=== PATIENT | female | born 1985 | race Caucasian/White ===

== ENCOUNTER 2016-07-01 01:20 | Observation (INO) | payer OTHER ==
[2016-07-01] MEDS ORDERED: Ondansetron 4 MG Tab.DIS PO ONE (01:32)
--- NOTE | 2016-07-01 01:32 | EDM.PDOC ---
ED HPI Trauma - General Chief Complaint: Lower Extremity Injury/Pain Stated Complaint: ANKLE INJURY Time Seen by Provider: 07/01/16 01:22 - History of Present Illness INITIAL COMMENTS - FREE TEXT/NARRATIVE: HISTORY AND PHYSICAL: History of present illness: The patient is a 30-year-old female who presents after coming home after being out having some cocktails and inner dartos mis-stepping and "rolling her ankle" and falling. She has complains of only pain at her right ankle and there is no proximal and knee or hip pain she did not hit her head pass out or black out and has no head neck or back pain. She is no chest pain or shortness of breath and a normal day earlier without any issues. Patient denies any sensory changes in the toes. Patient states she was slightly nauseated on the trip here Review of systems: As per history of present illness and below otherwise all systems reviewed and negative. Past medical history: As per history of present illness and as reviewed below otherwise noncontributory. Surgical history: As per history of present illness and as reviewed below otherwise noncontributory. Social history: No reported history of drug or alcohol abuse. Family history: As per history of present illness and as reviewed below otherwise noncontributory. Physical exam: General: Well-developed well-nourished slightly overweight female who is nontoxic and speaking clearly and easily in the ED. Vital signs of the note by me HEENT: Atraumatic, normocephalic, pupils reactive, negative for conjunctival pallor or scleral icterus, mucous membranes moist, throat clear, neck supple, nontender, trachea midline. There are no midline step-offs or defects of the cervical spine Lungs: Clear to auscultation, breath sounds equal bilaterally, chest nontender. Heart: S1S2, regular, negative for clicks, rubs, or JVD. Abdomen: Soft, nondistended, nontender. Negative for masses or hepatosplenomegaly. Negative for costovertebral tenderness. Pelvis: Stable nontender. No lateral hip tenderness Genitourinary: Deferred. Rectal: Deferred. Extremities: Atraumatic except for the lateral aspect of the right ankle with her some soft tissue swelling and no crepitus or bony deformities or malalignment is seen. Neurovascular is intact distally and there is no foot or toe pain and no proximal tib-fib knee or hip pain on the right side. The legs are, negative for cords or calf pain. Neurovascular unremarkable. Also note that there are no open skin areas at the ankle Neuro: Awake, alert, oriented. Motor and sensory unremarkable throughout. Exam nonfocal. Back: There are no midline step-offs or defects of the thoracic or lumbar spine and no posterior rib tenderness Diagnostics: X-ray right ankle and tib-fib Accu-Chek serum hCG Therapeutics: Zofran IV fluids morphine 0258: I. discussed the x-ray findings and the case with Dr. Fisher who is rehabilitation therapy aide for orthopedics and she wants the patient to be placed in a post mold and admitted to the floor and she will be operated on tomorrow. The patient and family at bedside were notified of this and are in agreement. Impression: Bimalleolar fracture (closed) with disruption of the Mortise Definitive disposition and diagnosis as appropriate pending reevaluation and review of above. Allergies/ADRs: Allergies No Known Allergies Allergy (Verified 07/01/16 01:25) Home Medications: Ambulatory Orders . [No Known Home Meds] 05/04/14 [Confirmed 07/01/16] Social & Family History - Tobacco Use Smoking Status *Q: Never Smoker Years of Tobacco use: 8 Second Hand Smoke Exposure: No - Alcohol Use Days Per Week of Alcohol Use: 1 Number of Drinks Per Day: 2 Total Drinks Per Week: 2 - Recreational Drug Use Recreational Drug Use: No Drug Use in Last 12 Months: No Review of Systems - Review of Systems Review Of Systems: ROS reveals no pertinent complaints other than HPI. Trauma Exam - Physical Exam Exam: See Below (See dictation) Course - Vital Signs Last Recorded V/S: Last Vital Signs Temp 36.6 C 07/01/16 01:27 Pulse 79 07/01/16 01:27 Resp 16 07/01/16 01:27 BP 97/55 L 07/01/16 01:27 Pulse Ox 97 07/01/16 01:27 - Orders/Labs/Meds Orders: Active Orders 24 hr Category Date Time Status Patient Status [ADT] Stat ADT 07/01/16 03:04 Ordered Blood Glucose Check, Bedside [RC] ONETIME Care 07/01/16 03:03 Ordered Communication Order [RC] STAT Care 07/01/16 03:05 Ordered Ankle Min 3V Rt [CR] Stat Exams 07/01/16 01:27 Taken Tibia Fibula Rt [CR] Stat Exams 07/01/16 01:27 Taken HCG QUALITATIVE,SERUM [CHEM] Stat Lab 07/01/16 03:03 Ordered Sodium Chloride 0.9% [Normal Saline] 1,000 ml Med 07/01/16 03:03 Ordered IV STAT Sodium Chloride 0.9% [Saline Flush] Med 07/01/16 03:03 Ordered 10 ml FLUSH ASDIRECTED PRN Sodium Chloride 0.9% [Saline Flush] Med 07/01/16 03:03 Ordered 2.5 ml FLUSH ASDIRECTED PRN Saline Lock Insert [OM.PC] Stat Oth 07/01/16 03:03 Ordered Medication Orders Sodium Chloride (Normal Saline) 1,000 mls @ 999 mls/hr IV STAT ONE Stop: 07/01/16 04:03 Sodium Chloride (Saline Flush) 10 ml FLUSH ASDIRECTED PRN PRN Reason: Keep Vein Open Sodium Chloride (Saline Flush) 2.5 ml FLUSH ASDIRECTED PRN PRN Reason: Keep Vein Open Meds: Medications Generic Name Dose Route Start Last Admin Trade Name Freq PRN Reason Stop Dose Admin Sodium Chloride 1,000 mls @ 999 mls/hr 07/01/16 03:03 Normal Saline IV 07/01/16 04:03 STAT ONE Sodium Chloride 10 ml 07/01/16 03:03 Saline Flush FLUSH ASDIRECTED PRN Keep Vein Open Sodium Chloride 2.5 ml 07/01/16 03:03 Saline Flush FLUSH ASDIRECTED PRN Keep Vein Open Discontinued Medications Generic Name Dose Route Start Last Admin Trade Name Freq PRN Reason Stop Dose Admin Morphine Sulfate 4 mg 07/01/16 03:03 Morphine IVPUSH 07/01/16 03:04 ONETIME ONE Ondansetron HCl 4 mg 07/01/16 01:32 07/01/16 01:37 Zofran Odt PO 07/01/16 01:33 4 mg ONETIME ONE Administration Ondansetron HCl 4 mg 07/01/16 03:03 Zofran IVPUSH 07/01/16 03:04 ONETIME ONE Departure - Departure Time of Disposition: 03:06 Disposition: Refer to Observation Condition: good Clinical Impression: Ankle fracture, bimalleolar, closed Qualifiers: Encounter type: initial encounter Laterality: right Qualified Code(s): S82.841A - Displaced bimalleolar fracture of right lower leg, initial encounter for closed fracture Referrals: PCP,None [Primary Care Provider] - Forms: ED Department Discharge - My Orders Last 24 Hours: My Active Orders 07/01/16 01:27 Ankle Min 3V Rt [CR] Stat Tibia Fibula Rt [CR] Stat 07/01/16 03:03 Blood Glucose Check, Bedside [RC] ONETIME HCG QUALITATIVE,SERUM [CHEM] Stat Sodium Chloride 0.9% [Normal Saline] 1,000 ml IV STAT Sodium Chloride 0.9% [Saline Flush] 10 ml FLUSH ASDIRECTED PRN Sodium Chloride 0.9% [Saline Flush] 2.5 ml FLUSH ASDIRECTED PRN Saline Lock Insert [OM.PC] Stat 07/01/16 03:04 Patient Status [ADT] Stat 07/01/16 03:05 Communication Order [RC] STAT - Assessment/Plan Last 24 Hours: My Active Orders 07/01/16 01:27 Ankle Min 3V Rt [CR] Stat Tibia Fibula Rt [CR] Stat 07/01/16 03:03 Blood Glucose Check, Bedside [RC] ONETIME HCG QUALITATIVE,SERUM [CHEM] Stat Sodium Chloride 0.9% [Normal Saline] 1,000 ml IV STAT Sodium Chloride 0.9% [Saline Flush] 10 ml FLUSH ASDIRECTED PRN Sodium Chloride 0.9% [Saline Flush] 2.5 ml FLUSH ASDIRECTED PRN Saline Lock Insert [OM.PC] Stat 07/01/16 03:04 Patient Status [ADT] Stat 07/01/16 03:05 Communication Order [RC] STAT
[2016-07-01] MEDS ORDERED: Sodium Chloride 0.9% 10 ML Syringe FLUSH PRN (03:03)
[2016-07-01] MEDS ORDERED: Ondansetron 4 MG/2 ML SDV IVPUSH ONE (03:03)
[2016-07-01] MEDS ORDERED: Morphine 2 MG/ML Syringe IVPUSH ONE (03:03)
[2016-07-01] MEDS ORDERED: Sodium Chloride 0.9% 2.5 ML Syringe FLUSH PRN (03:03)
[2016-07-01] MEDS ORDERED: Sodium Chloride 0.9% 1,000 ML IV ONE (03:03)
[2016-07-01] MEDS ORDERED: HYDROmorphone 2 MG/ML Syringe IVPUSH ONE (03:15)
[2016-07-01] MEDS ORDERED: diphenhydrAMINE 50 MG/ML SDV IVPUSH ONE (03:18)
[2016-07-01] MEDS ORDERED: Ondansetron 4 MG/2 ML SDV IVPUSH PRN (04:06)
[2016-07-01] MEDS ORDERED: HYDROmorphone 1 MG/ML Syringe IVPUSH PRN (04:06)
[2016-07-01] MEDS ORDERED: Lactated Ringers 1,000 ML IV SCH (04:15)
[2016-07-01] MEDS ORDERED: ceFAZolin 2 GM in Premix Bag 1 BAG IV ONE (07:45)
--- NOTE | 2016-07-01 07:59 | PCM.HP ---
<Alsisa Tovar - Last Filed: 07/01/16 08:06> H&P History of Present Illness - General Date of Service: 07/01/16 Admit Problem/Dx: Admission Diagnosis/Problem Admission Diagnosis/Problem Ankle fracture Source of Information: Patient History Limitations: Reports: No limitations - History of Present Illness Initial Comments - Free Text/Narative: Patient went out drinking last night and returned home after the bars closed. She states she tripped on something at home and does not recall the event. Unable to tell the mechanism of her fall. She states she remember having right ankle pain. No other complaints of pain. She was seen in the ED where images and labs were obtained. Xray reveals a distal fibula fracture. H/o asthma as a child. Smokes 1/2 PPD. right ankle Pain Score (Numeric/FACES): 9 - Related Data Allergies/Adverse Reactions: Allergies Allergy/AdvReac Type Severity Reaction Status Date / Time morphine Allergy Itching Verified 07/01/16 03:36 Home Medications: Home Meds . [No Known Home Meds] 05/04/14 [History] Past Medical History - Past Health History Medical/Surgical History: Denies Medical/Surgical History Gastrointestinal History: Reports: None - Infectious Disease History Infectious Disease History: Reports: Chicken pox - Past Surgical History HEENT Surgical History: Reports: Tonsillectomy GI Surgical History: Reports: Colonoscopy Social & Family History - Family History Family Medical History: Noncontributory - Tobacco Use Smoking Status *Q: Never Smoker Years of Tobacco use: 8 Packs/Tins Daily: 1 Used Tobacco, but Quit: No Second Hand Smoke Exposure: No - Alcohol Use Days Per Week of Alcohol Use: 1 Number of Drinks Per Day: 2 Total Drinks Per Week: 2 Date of Last Drink: 06/30/16 Time of Last Drink: 23:00 - Recreational Drug Use Recreational Drug Use: No Drug Use in Last 12 Months: No H&P Review of Systems - Review of Systems: Review Of Systems: See Below General: Reports: no symptoms HEENT: Reports: no symptoms Pulmonary: Reports: No Symptoms Cardiovascular: Reports: no symptoms Gastrointestinal: Reports: No symptoms Genitourinary: Reports: no symptoms Musculoskeletal: Reports: no symptoms Skin: Reports: no symptoms Psychiatric: Reports: no symptoms Neurological: Reports: No Symptoms Hematologic/Lymphatic: Reports: no symptoms Immunologic: Reports: no symptoms Exam - Exam Exam: See Below - Vital Signs Vital Signs: Last Vital Signs Temp 36.9 C 07/01/16 04:23 Pulse 98 07/01/16 04:23 Resp 20 07/01/16 04:23 BP 121/67 07/01/16 04:23 Pulse Ox 100 07/01/16 04:23 Weight: 102.5 kg - Exam General: alert, oriented HEENT: Conjunctiva clear, EACs clear, EOMI, Hearing intact, Mucosa moist & pink Neck: supple, trachea midline Lungs: Clear to auscultation, Normal respiratory effort Cardiovascular: regular rate, regular rhythm Abdomen: normal bowel sounds, soft Skin: warm, dry, intact Neurological: cranial nerves intact Neuro Extensive - Mental Status: alert, oriented x3, normal mood/affect, normal cognition, memory intact (RLE: leg is in splint, able to move all her toes, sensation is intact. no discolorization. 2+ pulses. LLE: WNL) - Patient Data Lab Results last 24 hrs: Laboratory Results - last 24 hr 07/01/16 07/01/16 Range/Units 03:10 03:10 POC Glucose 114 H (60-110) mg/dL HCG, Qual NEGATIVE (NEG) *Q Meaningful Use (ADM) - VTE *Q VTE Criteria *Q: VTE Pharmacological Contraindications *Q: Not Candidate LT Anticoag - VTE Risk Assess *Q Each Risk Factor Represents 1 Point: Minor Surgery Planned Total Score 1 Point Risk Factors: 1 Each Risk Factor Represents 2 Points: None Total Score 2 Point Risk Factors: 0 Each Risk Factor Represents 3 Points: None Total Score 3 Point Risk Factors: 0 Each Risk Factor Represents 5 Points: None Total Score 5 Point Risk Factors: 0 Venous Thromboembolism Risk Factor Score *Q: 1 - Stroke *Q Stroke Criteria *Q: - AMI *Q AMI Criteria *Q: - Problem List (1) Ankle fracture, bimalleolar, closed SNOMED Code(s): 06768173 ICD Code: S82.843A - DISPLACED BIMALLEOLAR FRACTURE OF UNSP LOWER LEG, INIT Status: Acute Current Visit: Yes Qualifiers: Encounter type: initial encounter Laterality: right Qualified Code(s): S82.841A - Displaced bimalleolar fracture of right lower leg, initial encounter for closed fracture Problem List Initiated/Reviewed/Updated: Yes Orders Last 24hrs: Active Orders 24 hr Category Date Time Status Patient Status [ADT] Routine ADT 07/01/16 04:04 Active Elevate Extremity [RC] ASDIRECTED Care 07/01/16 04:06 Active Nothing Per Oral Diet [DIET] Diet 07/01/16 Breakfast Active HYDROmorphone [Dilaudid] Med 07/01/16 04:06 Active 0.5 - 1 mg IVPUSH Q3H PRN Lactated Ringers [Ringers, Lactated] 1,000 ml Med 07/01/16 04:15 Active IV ASDIRECTED Ondansetron [Zofran] Med 07/01/16 04:06 Active 4 mg IVPUSH Q8H PRN ceFAZolin [Ancef] 2 gm Med 07/01/16 07:45 Ordered Premix Bag 1 bag IV ONETIME Medication Orders Hydromorphone HCl (Dilaudid) 0.5 - 1 mg IVPUSH Q3H PRN PRN Reason: Pain Last Admin: 07/01/16 07:47 Dose: 1 mg Lactated Ringer's (Ringers, Lactated) 1,000 mls @ 125 mls/hr IV ASDIRECTED JENNY Last Admin: 07/01/16 04:40 Dose: 125 mls/hr Cefazolin Sodium/Dextrose 2 gm (/ Premix) 50 mls @ 100 mls/hr IV ONETIME JENNY Ondansetron HCl (Zofran) 4 mg IVPUSH Q8H PRN PRN Reason: Nausea/Vomiting Sodium Chloride (Saline Flush) 10 ml FLUSH ASDIRECTED PRN PRN Reason: Keep Vein Open Sodium Chloride (Saline Flush) 2.5 ml FLUSH ASDIRECTED PRN PRN Reason: Keep Vein Open Assessment/Plan Comment:: 30 yro female s/p fall with right bimalleolar fracture with syndesmotic injury. Patient will need surgical intervention this morning. - continue NPO - IVF - PRN pain medication IV - verify consent - ancef 2 g loss prevention auditor for OR - type and screen. Patient was seen and discussed with DR Phillip Tovar MD PGY 2 07/01/16 8:11 AM <Parul Fisher - Last Filed: 07/01/16 10:40> H&P History of Present Illness - General Admit Problem/Dx: Admission Diagnosis/Problem Admission Diagnosis/Problem Ankle fracture Exam - Vital Signs Vital Signs: Last Vital Signs Temp 97.6 F 07/01/16 08:00 Pulse 81 07/01/16 08:00 Resp 20 07/01/16 08:14 BP 105/63 07/01/16 08:00 Pulse Ox 100 07/01/16 08:14 - Patient Data Lab Results last 24 hrs: Laboratory Results - last 24 hr 07/01/16 07/01/16 Range/Units 03:10 03:10 POC Glucose 114 H (60-110) mg/dL HCG, Qual NEGATIVE (NEG) *Q Meaningful Use (ADM) - VTE *Q VTE Criteria *Q: - Stroke *Q Stroke Criteria *Q: - AMI *Q AMI Criteria *Q: Orders Last 24hrs: Active Orders 24 hr Category Date Time Status Patient Status [ADT] Routine ADT 07/01/16 04:04 Active Elevate Extremity [RC] ASDIRECTED Care 07/01/16 04:06 Active Nothing Per Oral Diet [DIET] Diet 07/01/16 Breakfast Active HYDROmorphone [Dilaudid] Med 07/01/16 04:06 Active 0.5 - 1 mg IVPUSH Q3H PRN Lactated Ringers [Ringers, Lactated] 1,000 ml Med 07/01/16 04:15 Active IV ASDIRECTED Ondansetron [Zofran] Med 07/01/16 04:06 Active 4 mg IVPUSH Q8H PRN Medication Orders Hydromorphone HCl (Dilaudid) 0.5 - 1 mg IVPUSH Q3H PRN PRN Reason: Pain Last Admin: 07/01/16 07:47 Dose: 1 mg Lactated Ringer's (Ringers, Lactated) 1,000 mls @ 125 mls/hr IV ASDIRECTED JENNY Last Admin: 07/01/16 04:40 Dose: 125 mls/hr Ondansetron HCl (Zofran) 4 mg IVPUSH Q8H PRN PRN Reason: Nausea/Vomiting Sodium Chloride (Saline Flush) 10 ml FLUSH ASDIRECTED PRN PRN Reason: Keep Vein Open Sodium Chloride (Saline Flush) 2.5 ml FLUSH ASDIRECTED PRN PRN Reason: Keep Vein Open Assessment/Plan Comment:: Agree with above. No T&S needed. rrk
--- NOTE | 2016-07-01 08:08 | PCM.SN ---
- Free Text/Narrative Note: Patient seen and examined. Agree with MD La admission H&P. For complete details, please refer to the H&P. Patient states she fell last evening. C/o right ankle pain. Denies other injury. H/o possible ankle sprain in the past, but no residual problems. Denies distal paralysis, paresthesias. EXam of ankle shows splint to be in place. Moves toes without pain. Cap refill/ sensation intact. XR reviewed. Shows Villegas C fracture of the distal fibula with posterior malleolus fracture involving <10% of the joint surface. Widening of the ankle mortise c/w syndesmotic injury. Ass: R bimalleolar ankle fracture with syndesmotic injury Plan: 1. Recommend surgical treatment: ORIF R ankle with repair of syndesmosis 2. Procedure and postoperative course discussed with patient. 3. Risks of procedure include, but are not limited to, infection, N/v injury, stiffness, hardware irritation, nonunion, malunion, need for further surgery, and anesthetic complications. Patient agrees to proceed. Will plan to do today. 4. Importance of smoking cessation emphasized.
--- NOTE | 2016-07-01 08:14 | PCM.PREANE ---
Preanesthetic Assessment - Anesthesia/Transfusion/Family Hx Anesthesia History: Prior Anesthesia Without Reaction Other Type of Anesthesia Reaction Comment: Reports with last one (endoscopy) "pretty groggy after" Others no problems Family History of Anesthesia Reaction: No Transfusion History: No Prior Transfusion(s) - Review of Systems General: No Symptoms Pulmonary: No Symptoms Cardiovascular: No Symptoms Gastrointestinal: No symptoms Neurological: No Symptoms Other: Reports: None - Physical Assessment NPO Status Date: 06/30/16 (solids 1800, liquids MN) NPO Status Time: 23:55 O2 Sat by Pulse Oximetry: 100 Respiratory Rate: 20 Vital Signs: Last Vital Signs Temp 36.9 C 07/01/16 04:23 Pulse 98 07/01/16 04:23 Resp 20 07/01/16 04:23 BP 121/67 07/01/16 04:23 Pulse Ox 100 07/01/16 04:23 Height: 1.65 m Weight: 102.5 kg ASA Class: 2 Mental Status: Alert & Oriented x3 Airway Class: Mallampati = 2 Dentition: Reports: Normal Dentition Lungs: Clear to auscultation, Normal respiratory effort Cardiovascular: Regular Rate, Regular Rhythm - Lab Values: Laboratory Last Values POC Glucose 114 mg/dL (60-110) H 07/01/16 03:10 HCG, Qual NEGATIVE (NEG) 07/01/16 03:10 - Allergies Allergies/Adverse Reactions: Allergies Allergy/AdvReac Type Severity Reaction Status Date / Time morphine Allergy Itching Verified 07/01/16 03:36 - Blood Blood Available: No - Anesthesia Plan Pre-Op Medication Ordered: None - Acknowledgements Anesthesia Type Planned: General Anesthesia Pt an Appropriate Candidate for the Planned Anesthesia: Yes Alternatives and Risks of Anesthesia Discussed w Pt/Guardian: Yes Pt/Guardian Understands and Agrees with Anesthesia Plan: Yes Additional Comments: smoker. multiple surgeries without anesthetic complications, preg test negative PreAnesthesia Questionnaire - Past Health History Medical/Surgical History: Denies Medical/Surgical History Gastrointestinal History: Reports: None - Infectious Disease History Infectious Disease History: Reports: Chicken pox - Past Surgical History HEENT Surgical History: Reports: Tonsillectomy, Other (see below) (dental extractions) GI Surgical History: Reports: Colonoscopy Female Surgical History: Reports: LEEP Musculoskeletal Surgical History: Reports: Other (see below) (bunion) - SUBSTANCE USE Smoking Status *Q: Current Every Day Smoker Tobacco Use Within Last Twelve Months: Cigarettes Second Hand Smoke Exposure: No Days Per Week of Alcohol Use: 1 Number of Drinks Per Day: 2 Total Drinks Per Week: 2 Date of Last Drink: 06/30/16 Time of Last Drink: 23:00 Recreational Drug Use History: No - HOME MEDS Home Medications: Home Meds . [No Known Home Meds] 05/04/14 [History] - CURRENT (IN HOUSE) MEDS Current Meds: Current Medications Hydromorphone HCl (Dilaudid) 0.5 - 1 mg IVPUSH Q3H PRN PRN Reason: Pain Last Admin: 07/01/16 07:47 Dose: 1 mg Lactated Ringer's (Ringers, Lactated) 1,000 mls @ 125 mls/hr IV ASDIRECTED JENNY Last Admin: 07/01/16 04:40 Dose: 125 mls/hr Cefazolin Sodium/Dextrose 2 gm (/ Premix) 50 mls @ 100 mls/hr IV ONETIME ONE Stop: 07/01/16 08:14 Ondansetron HCl (Zofran) 4 mg IVPUSH Q8H PRN PRN Reason: Nausea/Vomiting Sodium Chloride (Saline Flush) 10 ml FLUSH ASDIRECTED PRN PRN Reason: Keep Vein Open Sodium Chloride (Saline Flush) 2.5 ml FLUSH ASDIRECTED PRN PRN Reason: Keep Vein Open Discontinued Medications Diphenhydramine HCl (Benadryl) 25 mg IVPUSH ONETIME ONE Stop: 07/01/16 03:19 Last Admin: 07/01/16 03:27 Dose: 25 mg Hydromorphone HCl (Dilaudid) 1 mg IVPUSH ONETIME ONE Stop: 07/01/16 03:16 Last Admin: 07/01/16 03:31 Dose: 1 mg Sodium Chloride (Normal Saline) 1,000 mls @ 999 mls/hr IV STAT ONE Stop: 07/01/16 04:03 Last Admin: 07/01/16 03:26 Dose: 999 mls/hr Morphine Sulfate (Morphine) 4 mg IVPUSH ONETIME ONE Stop: 07/01/16 03:04 Last Admin: 07/01/16 04:41 Dose: Not Given Ondansetron HCl (Zofran Odt) 4 mg PO ONETIME ONE Stop: 07/01/16 01:33 Last Admin: 07/01/16 01:37 Dose: 4 mg Ondansetron HCl (Zofran) 4 mg IVPUSH ONETIME ONE Stop: 07/01/16 03:04 Last Admin: 07/01/16 03:29 Dose: 4 mg Preanesthetic Assessment - ANESTHESIA/TRANSFUSION/FAMILY HX Anesthesia/Transfusion History: Prior Anesthesia Other Type of Anesthesia Reaction Comment: Reports with last one (endoscopy) "pretty groggy after" Others no problems Family History of Anesthesia Reaction: No Intubation History: Unknown - PHYSICAL ASSESSMENT O2 Sat by Pulse Oximetry: 100 RR: 20 Vital Signs: Last Vital Signs Temp 36.9 C 07/01/16 04:23 Pulse 98 07/01/16 04:23 Resp 20 07/01/16 04:23 BP 121/67 07/01/16 04:23 Pulse Ox 100 07/01/16 04:23 Height: 1.65 m Weight: 102.5 kg - LAB Values: Laboratory Last Values POC Glucose 114 mg/dL (60-110) H 07/01/16 03:10 HCG, Qual NEGATIVE (NEG) 07/01/16 03:10 - ALLERGIES Allergies/Adverse Reactions: Allergies Allergy/AdvReac Type Severity Reaction Status Date / Time morphine Allergy Itching Verified 07/01/16 03:36
[2016-07-01] MEDS ORDERED: Ondansetron 4 MG/2 ML SDV ONE (09:35)
[2016-07-01] MEDS ORDERED: Lidocaine 2% 5 ML SDV ONE (09:35)
[2016-07-01] MEDS ORDERED: Propofol 200 MG/20 ML SDV ONE (09:36)
[2016-07-01] MEDS ORDERED: fentaNYL 250 MCG/5 ML SDV ONE (09:36)
[2016-07-01] MEDS ORDERED: Midazolam 1 MG/ML 2 ML SDV ONE (09:36)
[2016-07-01] MEDS ORDERED: Bupivacaine 0.5% 30 ML SDV ONE (10:47)
[2016-07-01] MEDS ORDERED: HYDROmorphone 2 MG/ML Syringe ONE (11:10)
[2016-07-01] MEDS ORDERED: Dexamethasone 4 MG/ML 5 ML MDV ONE (11:11)
[2016-07-01] MEDS ORDERED: Ketorolac 30 MG/ML SDV ONE (11:41)
[2016-07-01] MEDS ORDERED: diphenhydrAMINE 25 MG Cap PO PRN (12:37)
--- NOTE | 2016-07-01 12:39 | PCM.OPNOTE ---
<Alissa Tovar - Last Filed: 07/01/16 12:35> - General Post-Op/Procedure Note Date of Surgery/Procedure: 07/01/16 Post-Op Diagnosis: right bimalleolar fracture with syndesmotic injury Anesthesia Technique: General LMA Primary Surgeon: Parul Fisher Machine Operator Hay Stacker: Alissa Tovar Machine Operator Hay Stacker: Max Willard EBL in mLs: 10 Drain/Tube Comments:: Tourniquet 61 minutes Condition: Fair <Parul Fisher - Last Filed: 07/01/16 12:44> - General Post-Op/Procedure Note Free Text/Narrative:: #[id number]
[2016-07-01] MEDS ORDERED: fentaNYL 100 MCG/2 ML SDV ONE (12:56)
[2016-07-01] MEDS: fentaNYL 100 MCG/2 ML SDV IVPUSH PRN ×2 (13:08→13:15)
--- NOTE | 2016-07-01 13:23 | PCM.POSTAN ---
POST ANESTHESIA ASSESSMENT - MENTAL STATUS Mental Status: alert, oriented - RESPIRATORY Respiratory Status: respiratory rate WNL, airway patent, O2 saturation stable - CARDIOVASCULAR CV Status: pulse rate WNL, blood pressure stable - GASTROINTESTINAL GI Status: no symptoms - PAIN Pain Score: 4 - POST OP HYDRATION Hydration Status: adequate & stable
[2016-07-01] MEDS: Acetaminophen/HYDROcodone 325-10 MG Tab PO PRN ×2 (15:03→15:49)
--- NOTE | 2016-07-01 15:03 | OR ---
SURGEON: Parul Fisher MD DATE OF PROCEDURE: 07/01/2016 PREOPERATIVE DIAGNOSES: 1. Right bimalleolar ankle fracture (lateral and posterior). 2. Right ankle syndesmotic injury. POSTOPERATIVE DIAGNOSES: 1. Right bimalleolar ankle fracture (lateral and posterior). 2. Right ankle syndesmotic injury. PROCEDURE: 1. Open reduction internal fixation, right distal fibula. 2. Open reduction internal fixation, right ankle syndesmosis. LINK CUTTER: 1. Max Willard PA-C. 2. Alissa Tovar MD, PGY-2. ANESTHESIA: General. ESTIMATED BLOOD LOSS: 10 mL. TOURNIQUET TIME: 61 minute. COMPLICATIONS: None. DVT PROPHYLAXIS: PAS boot to the nonoperative leg. IMPLANTS USED: Cadillac 5 hole 1/3 semitubular plate with 3.5 mm nonlocking cortical screws and 2 Arthrex tightrope fixation systems. BRIEF HISTORY: Enriqueta is a 30-year-old female who injured her right ankle last evening. She states she tripped and fell. She was seen in the emergency room and found to have a Villegas C fracture of her right distal fibula along with a minimally displaced posterior malleolus fracture. There was no tib-fib overlap on the AP view, consistent with a syndesmotic injury. At that time, I recommended surgical treatment. The risks and goals of the procedure were discussed with the patient and were documented preoperatively. She agreed to proceed. DESCRIPTION OF PROCEDURE: The patient was properly identified and brought to the operating room. She was transferred from the OR cart and placed on the operating table in supine position. General anesthesia was administered. After adequate anesthesia was obtained, a well-padded tourniquet was applied to the right lower extremity. The right lower extremity was then prepped in standard fashion using ChloraPrep solution. It was then sterilely draped. A time-out was performed to ensure correct site and procedure. Preoperative antibiotics were given. The surgical site had been marked preoperatively. An incision was made over the lateral aspect of the right low leg, centered over the fracture site. Subcutaneous tissues were dissected. Care was taken to look for the superficial peroneal nerve. This was not encountered. The fracture was then visualized. This was quite transverse in nature. The periosteum was elevated from around the fracture site. The wound was copiously irrigated to remove the fracture hematoma. Two lobster claws were then placed on the proximal and distal fragments, and the fracture was reduced. A 5-hole plate was then placed. I left the center hole open and placed two 3.5 mm screws proximal and distal to the fracture site. C-arm imaging was used to check the position of the fracture. This confirmed that the fibular length had been restored. Two additional 3.5 mm screws were placed in the plate. At the time of C-arm imaging, it was noticed that there was some displacement of the distal fragment. It was then noted that there was a coronal split in a portion of the distal fragment. I then held the fibula in a reduced position and placed an additional screw through the fracture site. This provided better fixation. The fibular length was again checked, and there had been no change in this position. I then imaged the ankle under live fluoroscopy. An external rotation stress view did show widening of the syndesmosis as well as a lateral pull past with the bone hook. I elected to fix the syndesmosis. A small incision was made over the distal fibula. The subcutaneous tissues were cleared down to the level of the bone. A large periarticular clamp was then placed on the lateral and medial malleolus. This was clamped into position to hold the mortise intact. The foot was brought into a slightly plantar flexed position. A 3.5 mm drill was then used to drill through the fibula and tibia. The tightrope fixation system was then passed. This was then secured. The medial buttons flipped without difficulty. The clamp was then removed. This showed good reduction of the ankle mortise. With the significant ligament injury, I felt that 2 tight ropes would give better fixation. An additional tight rope construct was placed in a similar manner, just proximal to the previously inserted one. This was again passed without difficulty and was tightened into place. Final C-arm images confirmed good reduction of the fracture as well as gnosticism of the fibular length. The mortise appeared to be well approximated. Again, an external rotation stress view as well as the lateral pull with the bone hook was performed using live fluoroscopy. This showed no motion at the syndesmosis. The wound was then copiously irrigated with saline solution. The subcutaneous tissues were closed with 2-0 Monocryl. The skin was closed with xena. Xeroform gauze was placed over the wound, and a bulky dressing was applied. The tourniquet was then deflated. A well-padded posterior splint with medial and lateral stabilizing slabs was then placed. She was awakened from her anesthetic and transferred back to the operating room cart. She was brought to recovery room in stable condition. All needle and sponge counts were correct. VERONICA / ELFEGO /[id number]
[2016-07-01 16:34] VITALS: BP 140/72
--- NOTE | 2016-07-03 12:18 | CR ---
EXAMINATION: Right ankle HISTORY: ORIF COMPARISON: 07/01/2016 TECHNIQUE: 8 fluoroscopic images provided FINDINGS/IMPRESSION: Operative control films demonstrate screw and plate fixation of a distal fibula r diaphysis fracture. 2 syndesmotic anchors are noted. Posterior malleolus fracture also noted.
--- NOTE | 2016-07-03 16:13 | CR ---
EXAM DATE: 07/01/16 PATIENT'S AGE: 30 Patient: MONICA MARSH Facility: [place], [place] Site . Site : 1985 Study: XRay Extremity Right Ankle [id number] 2:18:28 AM Ordering Physician: Eliz Barney Final Report: Indication: Fall Technique: Three views of the right ankle Comparison: None available Findings: Bones/Joints: A fracture of the posterior malleolus and a fracture of the distal fibular diaphysis 6.6 centimeters proximal to the ankle joint. Widening of the medial mortise. Soft tissues: Mild soft tissue swelling. Impression: Distal fibular diaphyseal fracture and a fracture of the posterior malleolus with widening of the medial mortise, consistent with a PLR 4 injury Dictated by Flip Lepe MD @ 07/01/2016 2:48:57 AM Dictated by: Flip Lepe MD @ 07/01/2016 02:49:04 (Electronic Signature) Report Signed by Proxy and Original Signed Document filed in the Medical Record. [facility]
--- NOTE | 2016-07-03 16:14 | CR ---
EXAM DATE: 07/01/16 PATIENT'S AGE: 30 Patient: MONICA MARSH Facility: [place], [place] Site . Site : 1985 Study: XRay Extremity Right TibFib [id number]/18/2017 2:18:51 AM Ordering Physician: Eliz Barney Final Report: Indication: Fall Technique: Two views of the right tibia and fibula Comparison: 01/04/2016 Findings: Bones: The distal tibia and fibula are not visualized, however evaluated on the ankle series. A distal fibular diaphyseal fracture. No dislocation. Joint spaces: Unremarkable. Soft tissues: Unremarkable. Impression: A distal fibular diaphyseal fracture. Dictated by Flip Lepe MD @ 07/01/2016 2:50:25 AM Dictated by: Flip Lepe MD @ 07/01/2016 02:50:31 (Electronic Signature) Report Signed by Proxy and Original Signed Document filed in the Medical Record. YESSI
== END 2016-07-01 19:06 | disposition home or self-care (01) ==
LOC: MW.ED 01:20 → MW.MS 03:04
PROVIDERS: ADMIT Orthopaedic Surgery; ATTEND Orthopaedic Surgery
PROC: 0SSF04Z Reposition Right Ankle Joint with Internal Fixation Device, Open Approach (ICD-10-PCS; principal; 2016-07-01)
PROC: 0QSJ04Z Reposition Right Fibula with Internal Fixation Device, Open Approach (ICD-10-PCS; 2016-07-01)
DX: S82.841A Displaced bimalleolar fracture of right lower leg, initial encounter for closed fracture (principal); S93.04XA Dislocation of right ankle joint, initial encounter; W01.0XXA Fall on same level from slipping, tripping and stumbling without subsequent striking against object, initial encounter; Y92.009 Unspecified place in unspecified non-institutional (private) residence as the place of occurrence of the external cause; F17.210 Nicotine dependence, cigarettes, uncomplicated; Z88.5 Allergy status to narcotic agent
CPT/HCPCS: 27792; 27829; 73590; 73610; 76000; 82962; 84703; 96361; 96374; 96375; 99285; A9270; C1713; G0378; J1100; J1170; J1200; J1885; J2250; J2405; J3010; J7040; J7120; 01480; J2704

== ENCOUNTER → 2016-08-09 | Outpatient (CLI) | payer OTHER ==
--- NOTE | 2016-08-10 14:32 | CR ---
EXAM DATE: 08/09/16 PATIENT'S AGE: 30 Patient: MONICA MARSH Facility: [place], [place] Site . Site : 1985 Study: XRay Extremity Right Ankle [id number]/26/2017 10:37:49 AM Ordering Physician: Phillip Teran Final Report: HISTORY: Pain. Findings: Three views of the right ankle are compared to 12 July 2016. Cast has been removed. Skin xena are no longer present. Compression plate and multiple screws fix the distal fibular fracture in stable alignment. There is intact. A syndesmotic tension device is in place. The mortise is intact. There is subtle cortical step-off of the posterior malleolus consists with a nondisplaced fracture. Impression: 1. Status post ORIF of distal right fibula with syndesmotic tension device in place and intact mortise. 2. Nondisplaced posterior malleolar fracture without change. Dictated by Beverly Humphrey MD @ Aug 10 2016 12:56AM (Electronic Signature) Report Signed by Proxy. [facility]
== END ==
LOC: MW.CHORTHO 07:49
PROVIDERS: ATTEND Orthopaedic Surgery
DX: Z96.7 Presence of other bone and tendon implants (principal); Z98.890 Other specified postprocedural states; Z87.81 Personal history of (healed) traumatic fracture; S82.891D Other fracture of right lower leg, subsequent encounter for closed fracture with routine healing
CPT/HCPCS: 73610-26-RT; 73610-RT

== ENCOUNTER 2017-02-14 18:09 | Emergency (ER) | payer OTHER ==
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
[2017-02-14] MEDS ORDERED: Ketorolac 60 MG/2 ML SDV IM ONE (19:51)
[2017-02-14 20:29] VITALS: BP 116/69
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
== END 2017-02-14 20:27 | disposition home or self-care (01) ==
LOC: MW.ED 18:09
DX: M54.2 Cervicalgia (principal); F17.210 Nicotine dependence, cigarettes, uncomplicated; Z88.5 Allergy status to narcotic agent; V89.2XXA Person injured in unspecified motor-vehicle accident, traffic, initial encounter; Y92.410 Unspecified street and highway as the place of occurrence of the external cause
CPT/HCPCS: 70450; 72125; 81025; 96372; 99284; J1885; J2360; 99283

== ENCOUNTER 2018-10-21 19:03 | Emergency (ER) | payer OTHER ==
[2018-10-21] MEDS ORDERED: Albuterol/Ipratropium 3.0-0.5 MG/3 ML Neb Soln ONE (19:13)
[2018-10-21] MEDS ORDERED: methylPREDNISolone Sodium Succinate 125 MG/2 ML SDV ONE (19:13)
[2018-10-21] MEDS ORDERED: Albuterol/Ipratropium 3.0-0.5 MG/3 ML Neb Soln NEB ONE (19:14)
[2018-10-21] MEDS ORDERED: Sodium Chloride 0.9% 1,000 ML IV ONE (19:14)
[2018-10-21] MEDS ORDERED: Sodium Chloride 0.9% 2.5 ML Syringe FLUSH PRN (19:14)
[2018-10-21] MEDS ORDERED: Sodium Chloride 0.9% 10 ML Syringe FLUSH PRN (19:14)
[2018-10-21] MEDS ORDERED: methylPREDNISolone Sodium Succinate 125 MG/2 ML SDV IVPUSH ONE (19:14)
--- NOTE | 2018-10-21 19:19 | EDM.PDOC ---
ED HPI GENERAL MEDICAL PROBLEM - General Chief Complaint: Respiratory Problem Stated Complaint: PT HAS DIFFICULTY BREATHING Time Seen by Provider: 10/21/18 19:06 - History of Present Illness INITIAL COMMENTS - FREE TEXT/NARRATIVE: HISTORY AND PHYSICAL: History of present illness: The patient is a 32-year-old female who has no significant pulmonary or cardiac history but says that she has intermittently been told that she may have asthma or bronchospasm and smokes 4-5 cigarettes a day and presents with complaints of shortness of breath cough and cold symptoms that have been ongoing for the last 1 week. The patient says she has an albuterol inhaler that she was given but she is never had a formal diagnosis of asthma nor has she been tested for it. She says that for the last 1 week she has had cold symptoms including a cough occasionally productive of phlegm intermittent fevers and chills but no documented temperature but no runny nose. She says she is also had a sore throat from coughing. She has no abdominal pain vomiting and had some diarrhea last week but nothing recently. She just recently had her period and denies . She is eating and drinking normally. She has no chest pain per se but says that she like she can't take a deep breath and moving air as well as normal. She used her inhaler this morning as well as a few hours ago and she is not sure if it helped.She has no leg pain or swelling and no other systemic complaints. Review of systems: As per history of present illness and below otherwise all systems reviewed and negative. Past medical history: As per history of present illness and as reviewed below otherwise noncontributory. Surgical history: As per history of present illness and as reviewed below otherwise noncontributory. Social history: No reported history of drug or alcohol abuse. Family history: As per history of present illness and as reviewed below otherwise noncontributory. Physical exam: General: Well-developed well-nourished mildly overweight female who is nontoxic and is speaking in full sentences without breathlessness or hoarse voice. Vital signs are noted by me HEENT: Atraumatic, normocephalic, pupils reactive, negative for conjunctival pallor or scleral icterus, mucous membranes moist, throat clear, throat is slightly erythematous but uvula is midline and there is no swelling, there is no cervical adenopathy or nuchal rigidity neck supple, nontender, trachea midline. Lungs: Clear to auscultation with some tight air exchange in the upper [place] and some coarse rhonchi and scattered airway noise but no stridor or wheezing and no work of breathing, breath sounds equal bilaterally, chest nontender. Heart: S1S2, regular rhythm and slightly tachycardic rate on my evaluation no overt murmurs Abdomen: Soft, nondistended, nontender. Negative for masses or hepatosplenomegaly. NABS Pelvis: Stable nontender. Genitourinary: Deferred. Rectal: Deferred. Extremities: Atraumatic, negative for cords or calf pain. Neurovascular unremarkable. No pedal edema or leg asymmetry Neuro: Awake, alert, oriented. Cranial nerves II through XII unremarkable. Cerebellum unremarkable. Motor and sensory unremarkable throughout. Exam nonfocal. Diagnostics: EKG chest x-ray CBC CMP lactic acid UA UCG troponin Therapeutics: IV O2 monitor IV fluids duo neb Solu-Medrol Ativan Testing results were discussed with the patient and she still having a hacking cough. She had an episode where she was hyperventilating and feeling very anxious so she was given a small dose of Ativan and she appears to be better. She is aware that she needs to get a formal diagnosis of her reactive airway disease and she has an inhaler at home but we will give her a spacer for better delivery and we will also give her a burst of steroids and some cough medicine for home. I strictly stressed that she needs to follow-up in the clinic for definitive care and treatment and she states understanding. Impression: Bronchospasm/spastic cough/acute bronchitis Definitive disposition and diagnosis as appropriate pending reevaluation and review of above. - Related Data Allergies Allergy/AdvReac Type Severity Reaction Status Date / Time morphine Allergy Itching Verified 10/21/18 19:21 Home Meds: Home Meds . [No Known Home Meds] 10/21/18 [History] Past Medical History - Past Health History Medical/Surgical History: Denies Medical/Surgical History Gastrointestinal History: Reports: None - Infectious Disease History Infectious Disease History: Reports: Chicken Pox - Past Surgical History HEENT Surgical History: Reports: Tonsillectomy, Other (See Below) GI Surgical History: Reports: Colonoscopy Female Surgical History: Reports: LEEP Musculoskeletal Surgical History: Reports: Other (See Below) Social & Family History - Family History Family Medical History: Noncontributory - Caffeine Use Caffeine Use: Reports: Coffee, Soda ED ROS GENERAL - Review of Systems Review Of Systems: ROS reveals no pertinent complaints other than HPI. ED EXAM, GENERAL - Physical Exam Exam: See Below (See dictation) Course - Vital Signs Last Recorded V/S: Last Vital Signs Temp 36.5 C 10/21/18 19:03 Pulse 93 10/21/18 20:22 Resp 17 10/21/18 20:22 BP 129/81 10/21/18 20:22 Pulse Ox 96 10/21/18 20:22 - Orders/Labs/Meds Orders: Active Orders 24 hr Category Date Time Status Cardiac Monitoring [RC] . DIRECTED Care 10/21/18 19:13 Active Communication Order [RC] STAT Care 10/21/18 20:46 Active EKG Documentation Completion [RC] STAT Care 10/21/18 19:13 Active Oxygen Therapy, ED [RC] ASDIRECTED Care 10/21/18 19:13 Active Pulse Oximetry [RC] ASDIRECTED Care 10/21/18 19:13 Active RT Aerosol Therapy [RC] ASDIRECTED Care 10/21/18 19:14 Active Sodium Chloride 0.9% [Saline Flush] Med 10/21/18 19:14 Active 10 ml FLUSH ASDIRECTED PRN Sodium Chloride 0.9% [Saline Flush] Med 10/21/18 19:14 Active 2.5 ml FLUSH ASDIRECTED PRN Saline Lock Insert [OM.PC] Stat Oth 10/21/18 19:13 Ordered Medication Orders Sodium Chloride (Saline Flush) 10 ml FLUSH ASDIRECTED PRN PRN Reason: Keep Vein Open Sodium Chloride (Saline Flush) 2.5 ml FLUSH ASDIRECTED PRN PRN Reason: Keep Vein Open Labs: Laboratory Tests 10/21/18 10/21/18 10/21/18 Range/Units 19:20 19:20 19:20 WBC 7.78 (4.0-11.0) K/uL RBC 4.80 (4.30-5.90) M/uL Hgb 14.0 (12.0-16.0) g/dL Hct 41.6 (36.0-46.0) % MCV 86.7 (80.0-98.0) fL MCH 29.2 (27.0-32.0) pg MCHC 33.7 (31.0-37.0) g/dL RDW Std Deviation 40.0 (28.0-62.0) fl RDW Coeff of Angel 13 (11.0-15.0) % Plt Count 292 (150-400) K/uL MPV 10.10 (7.40-12.00) fL Neut % (Auto) 56.5 (48.0-80.0) % Lymph % (Auto) 36.9 (16.0-40.0) % [place] % (Auto) 5.4 (0.0-15.0) % Eos % (Auto) 0.9 (0.0-7.0) % Baso % (Auto) 0.3 (0.0-1.5) % Neut # (Auto) 4.4 (1.4-5.7) K/uL Lymph # (Auto) 2.9 H (0.6-2.4) K/uL [place] # (Auto) 0.4 (0.0-0.8) K/uL Eos # (Auto) 0.1 (0.0-0.7) K/uL Baso # (Auto) 0.0 (0.0-0.1) K/uL Nucleated RBC % 0.0 /100WBC Nucleated RBCs # 0 K/uL Lactate 1.6 (0.20-2.00) mmol/L Sodium 139 (136-145) mmol/L Potassium 3.5 (3.5-5.1) mmol/L Chloride 103 (98-107) mmol/L Carbon Dioxide 24.7 (21.0-32.0) mmol/L BUN 16 (7.0-18.0) mg/dL Creatinine 1.1 H (0.6-1.0) mg/dL Est Cr Clr Drug Dosing TNP Estimated GFR (MDRD) 56.9 ml/min Glucose 124 H (74-106) mg/dL Calcium 8.8 (8.5-10.1) mg/dL Total Bilirubin 0.2 (0.2-1.0) mg/dL AST 16 (15-37) IU/L ALT 20 (14-63) IU/L Alkaline Phosphatase 85 (46-116) U/L Troponin I < 0.050 (0.000-0.056) ng/mL Total Protein 7.2 (6.4-8.2) g/dL Albumin 3.7 (3.4-5.0) g/dL Globulin 3.5 (2.6-4.0) g/dL Albumin/Globulin Ratio 1.1 (0.9-1.6) Urine Color Urine Appearance Urine pH (5.0-8.0) Ur Specific [place] (1.001-1.035) Urine Protein (NEGATIVE) mg/dL Urine Glucose (UA) (NEGATIVE) mg/dL Urine Ketones (NEGATIVE) mg/dL Urine Occult Blood (NEGATIVE) Urine Nitrite (NEGATIVE) Urine Bilirubin (NEGATIVE) Urine Urobilinogen (<2.0) EU/dL Ur Leukocyte Esterase (NEGATIVE) Urine HCG, Qual (NEGATIVE) 10/21/18 10/21/18 Range/Units 20:05 20:05 WBC (4.0-11.0) K/uL RBC (4.30-5.90) M/uL Hgb (12.0-16.0) g/dL Hct (36.0-46.0) % MCV (80.0-98.0) fL MCH (27.0-32.0) pg MCHC (31.0-37.0) g/dL RDW Std Deviation (28.0-62.0) fl RDW Coeff of Angel (11.0-15.0) % Plt Count (150-400) K/uL MPV (7.40-12.00) fL Neut % (Auto) (48.0-80.0) % Lymph % (Auto) (16.0-40.0) % [place] % (Auto) (0.0-15.0) % Eos % (Auto) (0.0-7.0) % Baso % (Auto) (0.0-1.5) % Neut # (Auto) (1.4-5.7) K/uL Lymph # (Auto) (0.6-2.4) K/uL [place] # (Auto) (0.0-0.8) K/uL Eos # (Auto) (0.0-0.7) K/uL Baso # (Auto) (0.0-0.1) K/uL Nucleated RBC % /100WBC Nucleated RBCs # K/uL Lactate (0.20-2.00) mmol/L Sodium (136-145) mmol/L Potassium (3.5-5.1) mmol/L Chloride (98-107) mmol/L Carbon Dioxide (21.0-32.0) mmol/L BUN (7.0-18.0) mg/dL Creatinine (0.6-1.0) mg/dL Est Cr Clr Drug Dosing Estimated GFR (MDRD) ml/min Glucose (74-106) mg/dL Calcium (8.5-10.1) mg/dL Total Bilirubin (0.2-1.0) mg/dL AST (15-37) IU/L ALT (14-63) IU/L Alkaline Phosphatase (46-116) U/L Troponin I (0.000-0.056) ng/mL Total Protein (6.4-8.2) g/dL Albumin (3.4-5.0) g/dL Globulin (2.6-4.0) g/dL Albumin/Globulin Ratio (0.9-1.6) Urine Color YELLOW Urine Appearance CLEAR Urine pH 6.0 (5.0-8.0) Ur Specific [place] 1.010 (1.001-1.035) Urine Protein NEGATIVE (NEGATIVE) mg/dL Urine Glucose (UA) NEGATIVE (NEGATIVE) mg/dL Urine Ketones NEGATIVE (NEGATIVE) mg/dL Urine Occult Blood NEGATIVE (NEGATIVE) Urine Nitrite NEGATIVE (NEGATIVE) Urine Bilirubin NEGATIVE (NEGATIVE) Urine Urobilinogen 0.2 (<2.0) EU/dL Ur Leukocyte Esterase NEGATIVE (NEGATIVE) Urine HCG, Qual NEGATIVE (NEGATIVE) Meds: Medications Generic Name Dose Route Start Last Admin Trade Name Freq PRN Reason Stop Dose Admin Sodium Chloride 10 ml 10/21/18 19:14 Saline Flush FLUSH ASDIRECTED PRN Keep Vein Open Sodium Chloride 2.5 ml 10/21/18 19:14 Saline Flush FLUSH ASDIRECTED PRN Keep Vein Open Discontinued Medications Generic Name Dose Route Start Last Admin Trade Name Freq PRN Reason Stop Dose Admin Albuterol/Ipratropium 3 ml 10/21/18 19:14 10/21/18 19:23 Duoneb 3.0-0.5 Mg/3 Ml NEB 10/21/18 19:15 3 ml ONETIME ONE Administration Albuterol/Ipratropium Confirm 10/21/18 19:13 10/21/18 19:24 Duoneb 3.0-0.5 Mg/3 Ml Administered 10/21/18 19:14 Not Given Dose 3 ml .ROUTE .STK-MED ONE Sodium Chloride 1,000 mls @ 999 mls/hr 10/21/18 19:14 10/21/18 19:27 Normal Saline IV 10/21/18 20:14 999 mls/hr STAT ONE Administration Lorazepam 0.5 mg 10/21/18 19:55 10/21/18 20:01 Ativan IVPUSH 10/21/18 19:56 0.5 mg ONETIME ONE Administration Methylprednisolone Sodium Succinate 125 mg 10/21/18 19:14 10/21/18 19:23 Solu-Medrol IVPUSH 10/21/18 19:15 125 mg ONETIME ONE Administration Methylprednisolone Sodium Succinate Confirm 10/21/18 19:13 10/21/18 19:23 Solu-Medrol Administered 10/21/18 19:14 Not Given Dose 125 mg .ROUTE .STK-MED ONE Departure - Departure Time of Disposition: 20:51 Disposition: Home, Self-Care 01 Condition: Good Clinical Impression: Acute bronchitis with bronchospasm - Discharge Information Referrals: Melly Martinez [employer] DEVELOPER [Primary Care Provider] - Forms: ED Department Discharge Additional Instructions: The following information is given to patients seen in the emergency department who are being discharged to home. This information is to outline your options for follow-up care. We provide all patients seen in our emergency department with a follow-up referral. The need for follow-up, as well as the timing and circumstances, are variable depending upon the specifics of your emergency department visit. If you don't have a primary care physician on staff, we will provide you with a referral. We always advise you to contact your personal physician following an emergency department visit to inform them of the circumstance of the visit and for follow-up with them and/or the need for any referrals to a consulting specialist. The emergency department will also refer you to a specialist when appropriate. This referral assures that you have the opportunity for followup care with a specialist. All of these measure are taken in an effort to provide you with optimal care, which includes your followup. Under all circumstances we always encourage you to contact your private physician who remains a resource for coordinating your care. When calling for followup care, please make the office aware that this follow-up is from your recent emergency room visit. If for any reason you are refused follow-up, please contact the [facility] emergency department at and ask to speak to the emergency department charge nurse. [facility] Primary care- Internal Medicine and Family [address] [id number] Push hydration and avoid caffeinated products and use your inhaler that you have one to 2 puffs every 6 hours with a spacer you have been given in the ED tonight for the next 2 days and then every 6 hours as needed afterwards. Please start the prednisone you have been given in the ED tomorrow and use the cough medicine as you choose for sleep. Call Mr. Luther griffith at sleep times and try to reduce and/or quit smoking. Please connect with one of our providers or your provider in the clinic for further care and evaluation as we discussed and return to the ER as needed and as discussed - My Orders Last 24 Hours: My Active Orders 10/21/18 19:13 Cardiac Monitoring [RC] . DIRECTED EKG Documentation Completion [RC] STAT Oxygen Therapy, ED [RC] ASDIRECTED Pulse Oximetry [RC] ASDIRECTED Saline Lock Insert [OM.PC] Stat 10/21/18 19:14 RT Aerosol Therapy [RC] ASDIRECTED Sodium Chloride 0.9% [Saline Flush] 10 ml FLUSH ASDIRECTED PRN Sodium Chloride 0.9% [Saline Flush] 2.5 ml FLUSH ASDIRECTED PRN 10/21/18 20:46 Communication Order [RC] STAT - Assessment/Plan Last 24 Hours: My Active Orders 10/21/18 19:13 Cardiac Monitoring [RC] . DIRECTED EKG Documentation Completion [RC] STAT Oxygen Therapy, ED [RC] ASDIRECTED Pulse Oximetry [RC] ASDIRECTED Saline Lock Insert [OM.PC] Stat 10/21/18 19:14 RT Aerosol Therapy [RC] ASDIRECTED Sodium Chloride 0.9% [Saline Flush] 10 ml FLUSH ASDIRECTED PRN Sodium Chloride 0.9% [Saline Flush] 2.5 ml FLUSH ASDIRECTED PRN 10/21/18 20:46 Communication Order [RC] STAT
[2018-10-21 19:52] LABS: CHLORIDE,CL 103 mmol/L (98-107); SODIUM,NA 139 mmol/L (136-145)
--- NOTE | 2018-10-21 19:54 | CR ---
INDICATION: pain, sob TECHNIQUE: Chest 2 views. COMPARISON: None. FINDINGS: Cardiovascular and mediastinum: Heart size and vasculature are normal in caliber and appearance. Mediastinum is within normal limits. Lungs and pleural spaces: Lungs are clear. No sign of infiltrate or mass. No sign of pleural effusion. No pneumothorax. Bones and soft tissues: No significant findings. IMPRESSION: Unremarkable chest. Dictated by: Shantanu Barnett MD @ 10/21/2018 19:52:59 (Electronically Signed)
[2018-10-21] MEDS ORDERED: LORazepam 2 MG/ML SDV IVPUSH ONE (19:55)
[2018-10-21 21:07] VITALS: BP 118/66
== END 2018-10-21 21:13 | disposition home or self-care (01) ==
LOC: MW.ED 19:03
DX: J20.9 Acute bronchitis, unspecified (principal); F17.210 Nicotine dependence, cigarettes, uncomplicated; Z88.5 Allergy status to narcotic agent; Z98.890 Other specified postprocedural states
CPT/HCPCS: 36415; 71046; 80053; 81003; 81025; 83605; 84484; 85025; 93005; 94640; 96361; 96374; 96375; 99285; J2060; J2930; J7040; J7620-GY

== ENCOUNTER 2021-11-17 14:44 | Emergency (ER) | payer OTHER ==
[2021-11-17] MEDS ORDERED: Sodium Chloride 0.9% 2.5 ML Syringe FLUSH PRN (15:03)
[2021-11-17] MEDS ORDERED: Sodium Chloride 0.9% 10 ML Syringe FLUSH PRN (15:03)
[2021-11-17] MEDS ORDERED: Tetracaine HCl/PF 0.5% 4 ML Bottle EYEBOTH ONE (15:05)
[2021-11-17 15:58] VITALS: BP 137/86; PULSE 111
[2021-11-17] MEDS ORDERED: Calcium Gluconate 10% 1 GM/10 ML SDV ONE (16:00)
[2021-11-17 16:18] LABS: POTASSIUM,K 3.5 mmol/L (3.5-5.1)
== END 2021-11-17 17:03 | disposition home or self-care (01) ==
LOC: MW.ED 14:44
DX: T59.891A Toxic effect of other specified gases, fumes and vapors, accidental (unintentional), initial encounter (principal); E66.9 Obesity, unspecified; Z68.38 Body mass index [BMI] 38.0-38.9, adult; Z88.6 Allergy status to analgesic agent
CPT/HCPCS: 36415; 71045; 80053; 83735; 85025; 93005; 99284; J0610; 93010